=== PATIENT | female | born 2000 | race Caucasian/White ===

== ENCOUNTER 2022-07-22 19:24 | Emergency (ER) | payer BC, SELFPAY ==
[2022-07-22 19:32] VITALS: BP 139/73; PULSE 93; RESP 20; TEMP 37.2; O2SAT 98; BMI 28.2
[2022-07-22 19:37] VITALS: RESP 20
--- NOTE | 2022-07-22 19:45 | ED.LOWEXIN ---
HPI - Extremity Injury (Lower) General Time Seen by Provider: 19:46 Date Seen: 07/22/22 Chief Complaint: Unspecified Complaint, Adult Stated Complaint: Foot Injury Time Seen by Provider: 07/22/22 19:37 Source: patient and RN notes reviewed Mode of arrival: ambulatory Limitations: no limitations History of Present Illness HPI Narrative: Patient is a 22-year-old coming in after 45 lb weight dropped vertically on top of her foot. She was changing out weights, was lifting weights tonight. It impacted with the dorsum of her foot. She felt pain immediately, felt swelling immediately. Did take offer shoe. Is having pain with any range of motion in the foot, cannot walk on it due to pain. Has not taken anything for pain, would appreciate some ibuprofen on questioning. Nothing else was injured. Ice has been applied. Toes maybe feel a little number tingly on that foot. Related Data Home Medications Medication Instructions Recorded Confirmed escitalopram oxalate 10 mg tablet 10 mg PO DAILY 07/22/22 07/22/22 testosterone cypionate 200 mg/mL 60 mg IM 07/22/22 intramuscular oil Allergies Allergy/AdvReac Type Severity Reaction Status Date / Time Codine Allergy Uncoded 07/22/22 19:32 Review of Systems Narrative: As per HPI PFSH PFSH Social History Smoking Status: Never smoker How often do you have a drink containing alcohol: monthly or less How many standard drinks containing alcohol do you have on a typical day: 1 or 2 How often do you have six or more drinks on one occasion: Never AUDIT-C Alcohol total score: 1 Non-prescribed substance use: denies use service: No Exam Const: Vital Signs, click to edit/add: Vital Signs - 24 hr 07/22/22 19:32 07/22/22 19:37 Temperature 98.9 F Pulse Rate [Left P ulse Oximeter] 93 Respiratory Rate 20 Respiratory Rate [ Left Foot] 20 Blood Pressure [Ri ght Upper Arm] 139/73 Pulse Oximetry 98 Oxygen Delivery Me thod Room Air 22-year-old brought back in a wheelchair. There is some swelling developing on the dorsum of the left foot, over the mid foot to proximal metatarsal area. I can feel peripheral pulses. Patient does state that light touch is present, can feel me touch but maybe feels different than baseline. I am able to mobilize around the ankle. There is no ankle swelling. No tenderness over either malleolus. There is tenderness over the proximal 1st and 2nd metatarsals and into the midfoot where more of the swelling is. There is no pain over the ankle mortise nor any swelling. Patient had been applying ice overall the foot does feel a bit cool. Documenting provider has reviewed patient's vital signs: yes Course Reevaluation(s) Reevaluation #1: Reviewed with patient that there is no image evidence of fracture. It is quite painful for Cheo and we did discuss contusion/bone bruising possibly. We will fit for crutches. Can bear weight as tolerated. Patient has shoes that she will be able to wear. Time: 20:49 Vital Signs Vital signs: Initial Vital Signs Temperature 98.9 F 07/22/22 19:32 Temperature Source Oral 07/22/22 19:32 Pulse Rate 93 07/22/22 19:32 Pulse Rhythm 07/22/22 19:32 Pulse Strength 3+ Normal 07/22/22 19:32 Respiratory Rate 20 07/22/22 19:32 Blood Pressure 139/73 07/22/22 19:32 Blood Pressure Mean 95 07/22/22 19:32 Blood Pressure Position Sitting 07/22/22 19:32 Pulse Oximetry 98 07/22/22 19:32 Oxygen Delivery Method 07/22/22 19:32 Vital Signs Temperature 98.9 F 07/22/22 19:32 Pulse Rate 93 07/22/22 19:32 Respiratory Rate 20 07/22/22 19:32 Blood Pressure 139/73 07/22/22 19:32 Pulse Oximetry 98 07/22/22 19:32 Oxygen Delivery Method 07/22/22 19:32 Temperature 98.9 F 07/22/22 19:32 Pulse Rate 93 07/22/22 19:32 Respiratory Rate 20 07/22/22 19:37 Blood Pressure 139/73 07/22/22 19:32 Pulse Oximetry 98 07/22/22 19:32 Oxygen Delivery Method 07/22/22 19:32 MDM - Extremity Injury (Lower) Imaging Data X-ray left foot: Attestation: I have reviewed the pertinent imaging results. My impression: On visualization of the left foot images, I do not appreciate any fracture on my preliminary review. Radiologist's impression: Patient: CHEO TONG Facility:?[facility] Patient ID:?[id number] Site Patient ID:?[id number]. Site :?[id number] Study:?XRay Extremity Left FOOT 3V-07/22/2022 8:25:30 PM Ordering Physician:Devyn Guillaume Final Report: Indication: Injury. Technique: Left foot 3 views. Comparison: None. Findings: Bones: No acute fracture or aggressive osseous lesion. Alignment is normal. Joint spaces: Unremarkable. Soft tissues: Unremarkable. Impression: No evidence of an acute bony abnormality. Dictated by Ced Turner MD @ 07/22/2022 8:44:02 PM (Electronic Signature) Critical Care Time Critical Care Time Critical Care Time: No Discharge Plan Discharge Clinical Impression: Contusion of foot, left Patient Disposition: Home, Self-Care Condition: Stable Instructions: Foot Contusion (ED) Additional Instructions: Use Tylenol and/or ibuprofen per bottle directions as needed for pain control. Ice/elevate this foot as much as able to next few days to help minimize pain and swelling. Crutches as needed for pain-free weight-bearing, as soon as you are able to, can start bearing weight without crutches, can wear shoes that are comfortable. If you are not improving over the next week or so, do recommend re-evaluation. Activity Level: Activity as Tolerated Prescriptions: No Action testosterone cypionate 200 mg/mL oil 60 mg IM escitalopram oxalate 10 mg tablet 10 mg PO DAILY Follow Up/Referrals: Provider,Not a Local [Primary Care Provider] - Stand Alone Forms: [employer] Info Instructions
--- NOTE | 2022-07-22 19:59 | CRLHL7_ITS ---
For Patients: As a result of the Cures Act, medical imaging exams and procedure reports are released immediately into your electronic medical record. You may view this report before your referring provider. If you have questions, please contact your health care provider. Indication: Injury. Technique: Left foot 3 views. Comparison: None. Findings: Bones: No acute fracture or aggressive osseous lesion. Alignment is normal. Joint spaces: Unremarkable. Soft tissues: Unremarkable. Impression: No evidence of an acute bony abnormality. Dictated by Ced Turner MD @ 07/22/2022 8:44:02 PM (Electronically Signed)
[2022-07-22] MEDS: IBUPROFEN 200 MG TABLET 600 MG PO (20:27)
== END 2022-07-22 21:04 | disposition home or self-care (01) ==
PROVIDERS: Emergency Provider Family Medicine
DX: S90.32XA Contusion of left foot, initial encounter (principal); W20.8XXA Other cause of strike by thrown, projected or falling object, initial encounter
CPT/HCPCS: 73630; 99283; A9270